=== PATIENT | female | born 1980 | race Caucasian/White ===

== ENCOUNTER 2022-12-26 05:37 | Emergency (ER) | payer OTHER ==
[~2022-12-26] VITALS: Ht 162.6 cm; Wt 78.0 kg
[2022-12-26 05:54] VITALS: BP 127/86; O2SAT 100
[2022-12-26 07:06] VITALS: PULSE 76; RESP 18; TEMP 98
[2022-12-26 11:51] LABS: HEPATITIS B SURFACE ANTIGEN NEGATIVE
[2022-12-26 12:20] LABS: HEPATITIS C VIR.AB 0.18 INDEXVAL (0.00-0.80)
== END 2022-12-26 07:08 | disposition home or self-care (01) ==
LOC: ER 05:57
DX: Z77.21 Contact with and (suspected) exposure to potentially hazardous body fluids (principal)
CPT/HCPCS: 36415; 99283